=== PATIENT | male | born 1940 ===

== ENCOUNTER 2019-02-03 04:55 | Day surgery (SDC) | payer OTHER ==
[~2019-02-03 04:55] MED LIST: COZAAR50 MG; FINASTERIDE5 MG; GRALISE600 MG; SYNTHROID75 MCG; TAMS0.4C; TOPROL XL25 M1; VIRT-CAPS SOFTGE1 MG
[2019-02-03] MEDS ORDERED: PERCOCET 5-3251 EACH PO (08:58)
[2019-02-03] MEDS ORDERED: COLACE100 MG PO (08:59)
== END 2019-02-03 15:20 | disposition home or self-care (01) ==
LOC: CIR.AMB 04:55 → EDBD 09:15 → CIR.AMB 10:00
DX: K64.8 Other hemorrhoids (principal)